=== PATIENT | male | born 1960 | race Caucasian/White ===

== ENCOUNTER 2017-08-30 10:28 | Emergency (ER) | payer SELFPAY ==
[2017-08-30] MEDS ORDERED: Triple Antibiotic Oint 1 GM Packet ONE (10:41)
== END 2017-08-30 10:55 ==
LOC: MADERS 10:28
DX: S20.352A Superficial foreign body of left front wall of thorax, initial encounter (principal); W45.8XXA Other foreign body or object entering through skin, initial encounter
CPT/HCPCS: 99283

== ENCOUNTER 2017-11-08 13:08 | Outpatient (CLI) | payer OTHER ==
[~2017-11-08 13:08] MED LIST: Iopamidol 370 76% 100 ML VIAL ONE
--- NOTE | 2017-11-08 15:48 | CT ---
CT CHEST WITH IV CONTRAST: Date: 11/08/17 HISTORY: 57-year-old male with mass in mid sternum. History of lymphoma remission. FINDINGS: Comparison made with exam of 02/09/07. A report of the limited abdominal ultrasound of 10/21/17 state s presence of mass at the level of the mid sternum measuring 2.3 x 1.7 x 1.9 cm and noted inferior to the mid sternum. The images of the ultrasound are not available for correlation. No mediastinal, hilar, or axillary mass or lymphadenopathy is seen. No pleural or pericardial effusio ns are identified. No pulmonary nodules or masses are seen. No mass is seen involving or in close rel ation to the sternum. There are mild degenerative changes in the spine. There is mild gynecomastia. Upper abdominal tomogra ms are unremarkable. IMPRESSION: No evidence of sternal mass. POS: [facility]
== END 2017-11-08 13:09 | disposition home or self-care (01) ==
LOC: MADCT 13:08
DX: C95.90 Leukemia, unspecified not having achieved remission (principal)
CPT/HCPCS: 36415; 71260; 82565